=== PATIENT | male | born 1995 | race Caucasian/White ===

== ENCOUNTER 2018-06-28 18:27 | Emergency (ER) | payer MEDICAID ==
[2018-06-28 18:41] VITALS: PULSE 79
--- NOTE | 2018-06-28 19:42 | C.PDOC ---
History Of Present Illness 23 y/o male presents to the ED with complaints of feeling anxious and depressed, sent in by PMD. Admits he has had some thoughts of hurting himself, but denies having any plan. Patient denies any suicidal or homicidal ideations at present. Otherwise he offers no physical complaints. Time Seen by Provider: 06/28/18 19:42 Chief Complaint (Nursing): Psychiatric Evaluation History Per: Patient History/Exam Limitations: no limitations Onset/Duration Of Symptoms: Days Current Symptoms Are (Timing): Still Present Suicide/Self Injury Attempted (Context): None Modifying Factor(s): None Associated Symptoms: Anxiety, Depression. denies: Suicidal Thoughts, Suicidal Plan Involuntary Hold By: None Additional History Per: Prior Records (PMD prescription notes) Past Medical History Reviewed: Historical Data, Nursing Documentation, Vital Signs Vital Signs: Last Vital Signs Temp 98.7 F 06/28/18 18:33 Pulse 79 06/28/18 18:33 Resp 16 06/28/18 18:33 BP 116/82 06/28/18 18:33 Pulse Ox 96 06/28/18 18:33 - Medical History PMH: No Chronic Diseases Surgical History: No Surg Hx Family History: States: No Known Family Hx - Social History Hx Tobacco Use: No Hx Alcohol Use: No Hx Substance Use: No - Immunization History Hx Tetanus Toxoid Vaccination: No Hx Influenza Vaccination: No Hx Pneumococcal Vaccination: No Review Of Systems Constitutional: Negative for: Fever, Chills Gastrointestinal: Negative for: Nausea, Vomiting Psych: Positive for: Anxiety, Depression. Negative for: Suicidal ideation (or homicidal) Physical Exam - Physical Exam Appears: Non-toxic, No Acute Distress Skin: Warm, Dry Head: Normacephalic Eye(s): bilateral: Normal Inspection Oral Mucosa: Moist Neck: Trachea Midline, Supple Chest: Symmetrical Cardiovascular: Rhythm Regular Respiratory: No Rales, No Rhonchi, No Wheezing Gastrointestinal/Abdominal: Soft, No Tenderness, No Distention Extremity: Bilateral: Atraumatic, Normal Color And Temperature Pulses: Left Dorsalis Pedis: Normal, Right Dorsalis Pedis: Normal Neurological/Psych: Oriented x3 ED Course And Treatment - Laboratory Results Result Diagrams: 06/28/18 20:04 06/28/18 20:04 O2 Sat by Pulse Oximetry: 96 (RA) Pulse Ox Interpretation: Normal Progress Note: Blood work and urine sent. Administered ativan 0.5 mg PO. car worker helper evaluated patient. Dr Salazar disharged the pt to home. Reevaluation Time: 20:52 Reassessment Condition: Improved Disposition Counseled Patient/Family Regarding: Studies Performed, Diagnosis, Need For Followup - Disposition Referrals: [facility] [Outside] Disposition: HOME/ ROUTINE Disposition Time: 19:42 Condition: FAIR Instructions: Anxiety, Adult (DC) Forms: [employer] (Serbian) - Clinical Impression Clinical Impression: Anxiety disorder, unspecified - Scribe Statement The provider has reviewed the documentation as recorded by the Scribe (Catherine Acevedo) Provider Attestation: All medical record entries made by the Scribe were at my direction and personally dictated by me. I have reviewed the chart and agree that the record accurately reflects my personal performance of the history, physical exam, medical decision making, and the department course for this patient. I have also personally directed, reviewed, and agree with the discharge instructions and disposition.
[2018-06-28 20:09] LABS: BASO # 0.1 K/uL (0.0-0.2); BASO % 0.7 % (0.0-2.0); EOS # 0.1 K/uL (0.0-0.7); EOS % 0.6 % (0.0-4.0); HEMOGLOBIN 15.8 g/dL (12.0-18.0); LYMPH # 1.4 K/uL (1.0-4.3); LYMPH % 16.2 % (20.0-40.0); MEAN CELL VOLUME 90.1 fL (80.0-94.0); MEAN CORPUSCULAR HEMOGLOBIN 31.6 pg (27.0-31.0); MEAN CORPUSCULAR HGB CONC 35.1 g/dL (33.0-37.0); MEAN PLATELET VOLUME 9.1 fL (7.2-11.7); MONO # 0.6 K/uL (0.0-0.8); MONO % 7.1 % (0.0-10.0); NEUT # 6.7 K/uL (1.8-7.0); NEUT % 75.4 % (50.0-75.0); NRBC % 0.2 % (0.0-2.0); RBC 5.01 Mil/uL (4.40-5.90); RED CELL DISTRIBUTION WIDTH 12.5 % (11.5-14.5); WHITE BLOOD COUNT 8.9 K/uL (4.8-10.8)
[2018-06-28 20:16] LABS: SQUAMOUS EPITHIAL 1 /hpf (0-5); URINE BILIRUBIN NEGATIVE (NEGATIVE); URINE BLOOD NEGATIVE (NEGATIVE); URINE CLARITY Clear (Clear); URINE COLOR Yellow (YELLOW); URINE GLUCOSE (UA) NORMAL (Normal); URINE LEUKOCYTE ESTERASE NEG Leu/uL (Negative); URINE PROTEIN NEGATIVE (NEGATIVE); URINE UROBILINOGEN NORMAL mg/dL (0.2-1.0)
[2018-06-28 20:28] LABS: BARBITURATES, UR NEGATIVE (NEGATIVE); BENZODIAZEPINES, UR NEGATIVE (NEGATIVE); OPIATES, UR NEGATIVE (NEGATIVE); PHENCYCLIDINE, UR NEGATIVE (NEGATIVE)
[2018-06-28 20:48] LABS: ALB/GLOB RATIO 1.6 (1.0-2.1); ALT/SGPT 37 U/L (21-72); AST/SGOT 27 U/L (17-59); BLOOD UREA NITROGEN 8 mg/dL (9-20); CALCIUM 10.1 mg/dl (8.6-10.4); GFR NON-AFRICAN AMERICAN > 60
[2018-06-28 21:13] VITALS: BP 110/74; RESP 20; TEMP 98.5; O2SAT 100
== END 2018-06-28 21:11 | disposition home or self-care (01) ==
LOC: C.ER 18:27
DX: F41.9 Anxiety disorder, unspecified (principal)